=== PATIENT | male | born 1985 | race Caucasian/White ===

== ENCOUNTER 2020-08-03 17:46 | Emergency (ER) | payer SELFPAY ==
[2020-08-03] MEDS ORDERED: NORMAL SALINE 1000 ML 1,000 ML IV ONE (17:56)
[2020-08-03] MEDS ORDERED: THIAMINE HCL 100 MG, FOLIC ACID 1 MG in NORMAL SALINE 250 ML IV ONE (17:56)
--- NOTE | 2020-08-03 17:58 | ER Document Report ---
ED Medical Screen (RME) - General Chief Complaint: ETOH Abuse Stated Complaint: ETOH Time Seen by Provider: 08/03/20 17:52 Mode of Arrival: Wheelchair Information source: Patient Notes: Patient presents requesting detox from alcohol use. Patient reports last use this morning. Patient states he has been drinking daily for the past 3 weeks. Patient denies any other substance abuse. Patient restless in triage I have greeted and performed a rapid initial assessment of this patient. A comprehensive ED assessment and evaluation of the patient, analysis of test results and completion of the medical decision making process will be conducted by additional ED providers. - Related Data Allergies/Adverse Reactions: No Known Allergies Allergy (Verified 08/03/20 17:52) Physical Exam - Vital signs Vitals: Temp Pulse Resp BP Pulse Ox 98.7 F 127 H 16 142/76 H 97 08/03/20 17:52 08/03/20 17:52 08/03/20 17:52 08/03/20 17:52 08/03/20 17:52 - Cardiovascular Rhythm: Tachycardia Heart sounds: S1 appreciated, S2 appreciated - Neurological Neuro grossly intact: Yes - Psychological Associated symptoms: Restlessness Course - Vital Signs Vital signs: Temp Pulse Resp BP Pulse Ox 98.7 F 127 H 16 142/76 H 97 08/03/20 17:52 08/03/20 17:52 08/03/20 17:52 08/03/20 17:52 08/03/20 17:52
--- NOTE | 2020-08-03 18:24 | PSYCHOLOGICAL NOTE ---
Psych Note - Psych Note Date seen by psych provider: 08/03/20 Psych Note: At 1822 Gianna from [facility] called. She stated they are concerned for neurological issues versus just alcohol. They are holding a bed for patient. From [phone] spoke to patient and male (Jaxon Bland [phone]) that was present with patient. Observed patient lying in bed. He was antsy and fidgety. He tried to get up and stated he needed to use the bathroom to have a bowel movement. Male friend stated they have been working together the past 2.5 months, specifically he said "we have been working the steps together." He stated they are from [place] and have spent all day since about [phone] trying to get help for patient. He noted patient had been sober up until a week ago or longer. Patient denied mental health history. Observed him with a very unsteady gait just getting from ED bed to wheelchair to use the bathroom. Clinical Presentation: Alcohol Intoxication With Use Disorder Severe (relapse 1-3 weeks ago after 2 month sobriety) Medications: WA Protocol as deemed medically necessary and appropriate Impression/Plan: [facility] is holding a bed for patient. Once medically cleared and alcohol level at 200 or less medical staff can coordinate with staff at [facility] ([phone] or [phone]). Consulted with Dr. Encarnacion regarding the management and care of patient.
[2020-08-03 18:36] LABS: APPEARANCE,URINE CLEAR; BILIRUBIN,URINE NEGATIVE (NEGATIVE); COLOR,URINE STRAW; GLUCOSE, URINE NEGATIVE (NEGATIVE); KETONES,URINE NEGATIVE (NEGATIVE); LEUKOCYTE ESTERASE,URINE NEGATIVE (NEGATIVE); NITRITE,URINE NEGATIVE (NEGATIVE); PROTEIN,URINE NEGATIVE (NEGATIVE); URINE SPECIFIC GRAVITY 1.003; UROBILINOGEN,URINE NEGATIVE mg/dL (<2.0)
[2020-08-03 18:54] LABS: URINE AMPHETAMINES SCREEN NEGATIVE; URINE BARBITURATES SCREEN NEGATIVE; URINE BENZODIAZEPINES SCREEN NEGATIVE; URINE COCAINE SCREEN NEGATIVE; URINE MARIJUANA (THC) SCREEN NEGATIVE; URINE METHADONE SCREEN NEGATIVE; URINE PHENCYCLIDINE SCREEN NEGATIVE
[2020-08-03] MEDS ORDERED: LORAZEPAM INJ 2 MG/1 ML VIAL IV ONE (19:20)
[2020-08-03 19:21] LABS: ALBUMIN 4.1 g/dL (3.5-5.0); ALKALINE PHOSPHATASE 115 U/L (38-126); ANION GAP 13 (5-19); ASPARTATE AMINO TRANSFERASE 426 U/L (17-59); BILIRUBIN,DIRECT 0.4 mg/dL (0.0-0.4); BILIRUBIN,TOTAL 0.9 mg/dL (0.2-1.3); BLOOD UREA NITROGEN 5 mg/dL (7-20); CALCIUM 8.1 mg/dL (8.4-10.2); CARBON DIOXIDE 31 mmol/L (22-30); CHLORIDE 83 mmol/L (98-107); GLUCOSE 106 mg/dL (75-110); POTASSIUM 3.9 mmol/L (3.6-5.0); TOTAL PROTEIN 6.9 g/dL (6.3-8.2)
[2020-08-03 19:26] LABS: ABSOLUTE BASOPHILS # (AUTO) 0.1 10^3/uL (0.0-0.2); ABSOLUTE LYMPHOCYTES (AUTO) 2.3 10^3/uL (0.5-4.7); ABSOLUTE MONOCYTES (AUTO) 1.1 10^3/uL (0.1-1.4); ABSOLUTE NEUT (AUTO) 8.3 10^3/uL (1.7-8.2); BASOPHILS % (AUTO) 0.6 % (0-2); EOSINOPHILS % (AUTO) 0.1 % (0-6); HEMATOCRIT 45.3 % (37.9-51.0); HEMOGLOBIN 16.5 g/dL (13.5-17.0); LYMPHOCYTES % (AUTO) 19.5 % (13-45); MEAN CORPUSCULAR HEMOGLOBIN 30.4 pg (27.0-33.4); MEAN CORPUSCULAR HGB CONC 36.3 g/dL (32.0-36.0); MEAN CORPUSCULAR VOLUME 84 fl (80-97); MONOCYTES % (AUTO) 9.3 % (3-13); PLATELET COUNT 204 10^3/uL (150-450); RED BLOOD COUNT 5.41 10^6/uL (4.35-5.55); RED CELL DISTRIBUTION WIDTH 12.7 % (11.5-14.0); SEGMENTED NEUTROPHILS % (AUTO) 70.5 % (42-78); TOTAL CELLS COUNTED % (AUTO) 100 %; WHITE BLOOD COUNT 11.7 10^3/uL (4.0-10.5)
[2020-08-03 19:28] LABS: ACETAMINOPHEN < 10 ug/mL (10-30); SALICYLATE < 1.0 mg/dL (2.0-20.0)
[2020-08-03 19:31] LABS: ALCOHOL 473 mg/dL (NONE DETECTED)
--- NOTE | 2020-08-03 22:09 | ER Document Report ---
Entered by LUIS BRAVO SCRIBE 08/03/201930 Acting as scribe for:LUANA JORGENSEN DO ED General - General Chief Complaint: ETOH Abuse Stated Complaint: ETOH Time Seen by Provider: 08/03/20 17:52 Mode of Arrival: Wheelchair Information source: Patient Notes: This 34 year old male patient presents to the emergency department today with complaints of alcohol abuse. Patient states his is from [place], [place] and visiting a friend in [place]. Patient reports history of alcoholism and has been sober until around x1 week ago. Patient states he began to drink again and has around x18-26 beers daily. Patient states his last drink was earlier today. Denies drug use or any medical history. Per nurse, patient has a bed at [facility], but was sent here due to concerns of other issues than alcohol. - HPI Onset: Last week Onset/Duration: Gradual Quality of pain: No pain Severity: Moderate Associated symptoms: None Exacerbated by: Denies Relieved by: Denies - Related Data Allergies/Adverse Reactions: No Known Allergies Allergy (Verified 08/03/20 17:52) Past Medical History - General Information source: Patient - Social History Smoking Status: Never Smoker Cigarette use (# per day): No Chew tobacco use (# tins/day): No Frequency of alcohol use: Heavy Drug Abuse: None Family History: Reviewed & Not Pertinent Patient has homicidal ideation: No - Medical History Medical History: Negative Surgical Hx: Negative Review of Systems - Review of Systems Constitutional: No symptoms reported EENT: No symptoms reported Cardiovascular: No symptoms reported Respiratory: No symptoms reported Gastrointestinal: No symptoms reported Genitourinary: No symptoms reported Male Genitourinary: No symptoms reported Musculoskeletal: No symptoms reported Skin: No symptoms reported Hematologic/Lymphatic: No symptoms reported Neurological/Psychological: See HPI, Other - alcohol abuse -: Yes All other systems reviewed and negative Physical Exam - Vital signs Vitals: Temp Pulse Resp BP Pulse Ox 98.7 F 127 H 16 142/76 H 97 08/03/20 17:52 08/03/20 17:52 08/03/20 17:52 08/03/20 17:52 08/03/20 17:52 - General General appearance: Appears well, Alert - HEENT Head: Normocephalic, Atraumatic Eyes: Normal Pupils: PERRL - Respiratory Respiratory status: No respiratory distress Chest status: Nontender Breath sounds: Normal Chest palpation: Normal - Cardiovascular Rhythm: Regular Heart sounds: Normal auscultation Murmur: No - Abdominal Inspection: Normal Distension: No distension Bowel sounds: Normal Tenderness: Nontender - Extremities General upper extremity: Normal inspection, Normal ROM General lower extremity: Normal inspection, Normal ROM. No: Edema - Neurological Neuro grossly intact: Yes Cognition: Normal Orientation: AAOx4 Rere Coma Scale Eye Opening: Spontaneous [place] Coma Scale Verbal: Oriented [place] Coma Scale Motor: Obeys Commands Rere Coma Scale Total: 15 - Psychological Notes: Displays minor agitation. - Skin Skin Temperature: Warm Skin Moisture: Dry Skin Color: Normal Course - Re-evaluation Re-evalutation: 08/04/20 02:23 MDM 34 year old with Acute etoh intoxication and drinking heavily over the past 7 days or so. He wants to quit. 3 years sober in the past. Lives in [place]. [facility] reportedly was to accept him as voluntary but acting a bit agitated in t heir estimation. He has been cooperative here. Awaiting repeat etoh level. - Vital Signs Vital signs: Temp Pulse Resp BP Pulse Ox 100.0 F 140 H 16 122/42 L 98 08/04/20 00:58 08/04/20 00:58 08/04/20 00:58 08/04/20 00:58 08/04/20 00:58 - Laboratory Result Diagrams: 08/03/20 18:50 08/03/20 18:50 Laboratory results interpreted by me: 08/03/20 08/03/20 08/03/20 18:13 18:50 18:50 WBC 11.7 H MCHC 36.3 H Absolute Neuts (auto) 8.3 H Sodium 127.4 L Chloride 83 L Carbon Dioxide 31 H BUN 5 L Calcium 8.1 L AST 426 H ALT 310 H Urine Blood SMALL H Salicylates < 1.0 L Acetaminophen < 10 L Serum Alcohol 473 H* - EKG Interpretation by Ny EKG shows normal: Sinus rhythm Rate: Tachycardia - Sinus Tachy 105 BPM nl axis no st elevation or depression my intepretation. Critical Care Note - Critical Care Note Total time excluding time spent on procedures (mins): 30 Discharge - Discharge Clinical Impression: ETOH abuse Alcohol intoxication Qualifiers: Complication of substance-induced condition: uncomplicated Qualified Code(s): F10.920 - Alcohol use, unspecified with intoxication, uncomplicated Condition: Stable Disposition: PSYCH HOSP/UNIT I personally performed the services described in the documentation, reviewed and edited the documentation which was dictated to the scribe in my presence, and it accurately records my words and actions.
[2020-08-04] MEDS ORDERED: ONDANSETRON 4 MG TAB.RAPDIS PO ONE (03:09)
[2020-08-04] MEDS ORDERED: LORAZEPAM 0.5 MG TABLET PO ONE (03:10)
[2020-08-04 06:03] VITALS: BP 136/81
--- NOTE | 2020-08-04 07:24 | EKG REPORT ---
SEVERITY:- OTHERWISE NORMAL ECG - SINUS TACHYCARDIA : Confirmed by: Sergio Irene MD 04-Aug-2020 07:24:09
== END 2020-08-04 06:00 ==
LOC: ER 17:46
DX: F10.220 Alcohol dependence with intoxication, uncomplicated (principal)
CPT/HCPCS: 93005; 99281; 96375; 96365; 36415; 80307 ×4; 85025; 80053; 81001; 93010; S0119; J3490; J2060; J3411; J7030; J7050